=== PATIENT | female | born 2000 | race Two or more races ===

== ENCOUNTER 2022-11-16 00:48 | Emergency (ER) | payer OTHER ==
[~2022-11-16] VITALS: Ht 162.6 cm; Wt 67.1 kg
[2022-11-16 01:13] VITALS: BP 120/46; PULSE 96; RESP 18; O2SAT 98
== END 2022-11-16 06:10 | disposition left against medical advice (07) ==
LOC: ER 00:48
DX: F41.0 Panic disorder [episodic paroxysmal anxiety] (principal); R25.2 Cramp and spasm; Z53.21 Procedure and treatment not carried out due to patient leaving prior to being seen by health care provider